=== PATIENT | male | born 1995 | race American Indian/Alaskan Native ===

== ENCOUNTER 2019-10-27 11:25 | Outpatient (CLI) | payer OTHER | END 2019-10-27 21:10 | disposition home or self-care (01) | LOC: RAD 11:25 | DX: S32.009A Unspecified fracture of unspecified lumbar vertebra, initial encounter for closed fracture (principal); T14.8XXA Other injury of unspecified body region, initial encounter; G89.29 Other chronic pain; R06.9 Unspecified abnormalities of breathing; R45.0 Nervousness ==